=== PATIENT | male | born 1985 | race Two or more races ===

== ENCOUNTER 2025-05-25 08:52 | Emergency (ER) | payer MEDICAID, OTHER ==
[~2025-05-25] VITALS: Ht 172.7 cm; Wt 80.9 kg
--- NOTE | 2025-05-25 09:17 | ECG ---
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
--- NOTE | 2025-05-25 09:44 | ED.PDOC ---
History of Present Illness HPI Comments A 39 YEAR OLD MALE PRESENTS TO THE ED WITH SON AND THE COMPLAINT OF FLU-LIKE SYMPTOMS. PATIENT WHO IS TONG[place] SPEAKING IS BEING TRANSLATED BY THE SON DUE FROM THE PATIENT HAVING A HEADACHE, NAUSEA, SHORTNESS OF BREATH SENSATION, PALPITATIONS, DIZZINESS, ALL STARTING YESTERDAY ONTO TODAY. PATIENT DENIES FEV ER, CHILLS, CHEST PAIN, ABDOMINAL PAIN, VOMITING, HEADACHE, OR OTHER COMPLAINTS. NO OTHER SYMPTOMS OR MODIFYING FACTORS AT THIS TIME. PATIENT IS ALERT, ORIENTED X 4, AND HAS STEADY GAIT. Chief Complaint: Flu like Time Seen by MD: 09:30 Reviewed Notes: Nurses Notes, Medications, Allergies Allergies: Coded Allergies: NO KNOWN ALLERGIES (Unverified , 05/25/25) Home Meds Active Scripts Hydroxyzine Hcl (Hydroxyzine Hcl) 50 Mg Tab, 1 TAB PO QPM, #24 TAB Prov:REKHA BANGURA 05/25/25 Acetaminophen (Tylenol Extra Strength Fo) 500 Mg Tab, 1000 MG PO BID, #30 TAB Prov:REKHA BANGURA 05/25/25 Information Source: Patient Mode of Arrival: Ambulatory Severity: Moderate Timing: Hours Duration: Since onset, Hours Prehospital treatment: None Medication Refill: For: Other (POSSIBLE ANXIETY REACTION ) Past Medical History PAST MEDICAL HISTORY: HTN Surgical History: Denies all surgeries Family History Family History: Reviewed,noncontributory to illness, Unknown Social History Smoker: Non-Smoker Alcohol: Occasionally Drugs: Denies Drug Use Lives In: Home Constitutional: reports: others (ANXIOUS ); denies: chills, diaphoresis, fatigue, fever, malaise, sweats, weakness EENTM: denies: blurred vision, double vision, ear bleeding, ear discharge, ear drainage, ear pain, ear ringing, eye pain, eye redness, hearing loss, mouth pain, mouth swelling, nasal discharge, nose bleeding, nose congestion, nose pain, photophobia, tearing, throat pain, throat swelling, voice changes, others Respiratory: denies: cough, hemoptysis, orthopnea, SOB at rest, shortness of breath, SOB with excertion, stridor, wheezing, others Cardiovascular: reports: palpitations; denies: chest pain, dizzy spells, diaphoresis, Dyspnea on exertion, edema, irregular heart beat, left arm pain, lightheadedness, PND, syncope, others Gastrointestinal: reports: nausea; denies: abdomen distended, abdominal pain, blood streaked bowels, constipated, diarrhea, dysphagia, difficulty swallowing, hematemesis, melena, poor appetite, poor fluid intake, rectal bleeding, rectal pain, vomiting, others Genitourinary: denies: burning, dysuria, flank pain, frequency, hematuria, incontinence, penile discharge, penile sore, pain, testicle pain, testicle swelling, urgency, others Neurological: reports: dizziness, headache; denies: fainting, left sided numbness, left sided weakness, numbness, paresthesia, pre-existing deficit, right sided numbness, right sided weakness, seizure, speech problems, tingling, tremors, weakness, others Musculoskeletal: denies: back pain, gout, joint pain, joint swelling, muscle pain, muscle stiffness, neck pain, others Integumetry: denies: bruises, change in color, change in hair/nails, dryness, laceration, lesions, lumps, rash, wounds, others Allergic/Immunocompromised: denies: Difficulty Healing, Frequent Infections, Hives, Itching, others Hematologic/Lymphatic: denies: anemia, blood clots, easy bleeding, easy bruising, swollen glands, others Endocrine: denies: excessive hunger, excessive sweating, excessive thirst, excessive urination, flushing, intolerance to cold, intolerance to heat, unexplained weight gain, unexplained weight loss, others Psychiatric: reports: anxiety; denies: bipolar disorder, depression, hopeless, panic disorder, schizophrenia, sleepless, suicidal, others All Other Systems: Reviewed and Negative Physical Exam General Appearance: Mild Distress, Normal, Other (ANXIOUS ) HEENT: Normal ENT Inspection, PERRL/EOMI, Pharynx Normal, TMs Normal Neck: Full Range of Motion, Non-Tender, Normal, Normal Inspection Respiratory: Chest Non-Tender, Lungs Clear, No Accessory Muscle Use, No Respiratory Distress, Normal Breath Sounds Cardiovascular: No Edema, No JVD, No Murmur, No Gallop, Normal Peripheral Pulses, Regular Rate/Rhythm Breast Exam: Deferred Gastrointestinal: No Organomegaly, Non Tender, No Pulsatile Mass, Normal Bowel Sounds, Soft Genitalia: Deferred Pelvic: Deferred Rectal: Deferred Extremities: No calf tenderness, Normal capillary refill, Normal inspection, Normal range of motion, Non-tender, No pedal edema Musculoskeletal : Apperance: Normal Neurologic: Alert, 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 Was a procedure done?: No EKG EKG : Pulse Rate (adult): 78 [place]: Normal Cardiac Rhythm: NSR Block: None Hypertrophy: None ST: Normal Differential Dx Considerations may include: PALPITATIONS, ANXIETY, TENSION HEADACHE X-Ray, Labs, Meds, VS Vital Signs Date Time Temp Pulse Resp B/P (MAP) Pulse Ox O2 Delivery O2 Flow Rate FiO2 05/25/25 11:29 98.3 66 18 144/89 (107) 99 98.3 05/25/25 11:29 66 18 99 Room Air 05/25/25 09:44 78 05/25/25 09:11 78 05/25/25 08:56 98.1 82 14 124/77 98 98.1 Lab Test 05/25/25 09:49 05/25/25 09:38 Range/Units White Blood Count 9.4 4.4-10.8 10^3/uL Red Blood Count 5.62 4.5-5.90 10^6/uL Hemoglobin 17.7 H 13.5-17.5 g/dL Hematocrit 51.4 41.0-53.0 % Mean Corpuscular Volume 91.4 80.0-100.0 fL Mean Corpuscular Hemoglobin 31.4 28.0-32.0 pg Mean Corpuscular Hemoglobin Concent 34.4 32.0-36.0 g/dL Red Cell Distribution Width 13.0 11.8-14.3 % Platelet Count 217 140-450 10^3/uL Mean Platelet Volume 9.8 6.9-10.8 fL Neutrophils (%) (Auto) 63.5 37.0-80.0 % Lymphocytes (%) (Auto) 29.2 10.0-50.0 % Monocytes (%) (Auto) 5.1 0.0-12.0 % Eosinophils (%) (Auto) 1.5 0.0-7.0 % Basophils (%) (Auto) 0.7 0.0-2.0 % Neutrophils # (Auto) 6.0 1.6-8.6 10 ^3/uL Lymphocytes # (Auto) 2.8 0.4-5.4 10 ^3/uL Monocytes # (Auto) 0.5 0-1.3 10 ^3/uL Eosinophils # (Auto) 0.1 0-0.8 10 ^3/uL Basophils # (Auto) 0.1 0-0.2 10 ^3/uL Nucleated Red Blood Cells 0.0 % Sodium Level 142 136-145 mmol/L Potassium Level 4.0 3.5-5.1 mmol/L Chloride Level 102 98-107 mmol/L Carbon Dioxide Level 29 20-31 mmol/L Anion Gap 11 5-15 Blood Urea Nitrogen 11 9-23 mg/dL Creatinine 0.95 0.700-1.30 mg/dL Glomerular Filtration Rate Calc 104 >90 mL/min BUN/Creatinine Ratio 11.6 10.0-20.0 Serum Glucose 103 74-106 mg/dL Calcium Level 9.6 8.7-10.4 mg/dL Troponin I High Sensitivity < 3 L </=54 ng/L Plasma/Serum Blood Alcohol < 3.0 <10 mg/dL Urine Color Light-yellow Yellow Urine Clarity Clear Clear Urine pH 6.5 5.0-9.[address] 1.017 1.001-1.035 Urine Protein Negative Negative Urine Ketones Negative Negative Urine Blood Negative Negative /uL Urine Nitrite Negative Negative Urine Bilirubin Negative Negative Urine Urobilinogen Normal Negative mg/dL Urine Leukocyte Esterase Negative Negative /uL Urine RBC 1 0 - 3 /hpf Urine Microscopic WBC < 1 0-3 /HPF Urine Squamous Epithelial Cells None seen <5 /hpf Urine Bacteria None seen None Seen /hpf Urine Glucose Normal Normal mg/dL Urine Opiates Screen Neg NEGATIVE Urine Fentanyl Screen Neg NEGATIVE Urine Barbiturates Screen Neg NEGATIVE Urine Phencyclidine Screen Neg NEGATIVE Urine Amphetamines Screen Neg NEGATIVE Urine Benzodiazepines Screen Neg NEGATIVE Urine Cocaine Screen Neg NEGATIVE Urine Cannabinoids Screen Neg NEGATIVE Current Medications Medications (Trade) Dose Ordered Sig/Suleiman Route Start Time Stop Time Status Last Admin Acetaminophen (Tylenol Tablet Or Capsule) 1,000 mg ONCE ONCE PO 05/25/25 11:30 05/25/25 11:31 DC 05/25/25 11:35 PATIENT: BALAJI NORMANLEIFT: [id number]: [id number] : 1985 LOC: ER ROOM / BED: / AGE / SEX: 39 / M ADM STATUS: REG ER SERVICE ORDERING PHYSICIAN: REKHA BANGURA PROCEDURE(s): CXR1 - CHEST XRAY 1 VIEW REASON: PALPITATION ORDER NUMBER(s): [id number], ACCESSION NUMBER(s): [id number] EXAM: XY CHEST XRAY 1 VIEW Indication: PALPITATION Technique: Single frontal view of the chest was obtained Comparison: None FINDINGS: Lines and Tubes: None Lungs: No focal consolidation. Pleura: No effusion. No pneumothorax. Cardiomediastinal contours: Unremarkable Bones: No acute osseous abnormality. IMPRESSION: No acute cardiopulmonary disease. ATED BY: TANG SPEAR MD DICTATED DATE/TIME: 05/25/251016 SIGNED BY: TANG SPEAR MD SIGNED DATE/TIME: 05/25/251016 CC: X-Ray, Labs, Meds, VS Comment EXTERNAL MEDICAL RECORDS REVIEWED: [NONE] INDEPENDENT HISTORIANS: [NONE] SOCIAL DETERMINANTS OF HEALTH: [NONE] LABS ORDERED: CBC, BMP, TROP T, UA, DRUG AND ETOH REVIEWED AND INTERPRETED RESULTS: NORMAL IMAGING ORDERED: CHEST X-RAY: NORMAL TREATMENTS ORDERED: TYLENOL 1GM PO PROCEDURES PERFORMED: NONE CRITICAL CARE TIME: NONE I HAVE DISCUSSED THE PATIENT WITH THE ATTENDING PHYSICIAN DR. LAINEZ AND HE AGREES WITH THE PATIENT'S PLAN OF CARE AND DISPOSITION. BASED ON HISTORY OF PRESENT ILLNESS, AND PHYSICAL EXAM, PATIENT WILL BE DISCHARGED HOME. DISCUSSED PLAN FOR DISCHARGE HOME WITH RX [TYLENOL AND VISTARIL]. MEDICATION WARNINGS GIVEN. SHARED DECISION MAKING: DISCUSSED WITH PATIENT THAT THEIR WORKUP WAS NORMAL. PATIENT INSTRUCTED TO FOLLOW UP WITH PRIMARY CARE PROVIDER IN 1-2 DAYS FOR RE- EVALUATION OF SYMPTOMS. PATIENT VERBALIZES UNDERSTANDING TO RETURN TO ED FOR NEW OR WORSENING SYMPTOMS OR IF FOLLOW UP WITH PCP CANNOT BE OBTAINED. PATIENT FEELS COMFORTABLE GOING HOME AT THIS TIME. ALL QUESTIONS ADDRESSED AT TIME OF DISCHARGE. Time of 1ST Reevaluation: 11:40 Reevaluation 1ST: Improved Patient Education/Counseling: Diagnosis, Treatment, Need For Follow Up Family Education/Counseling: Diagnosis, Treatment, Need For Follow Up Medical Screening: No EMC Exist At This Time SEPSIS Sepsis Screen Date sepsis recognized/suspect: May 25, 2025 Time Sepsis recognized/suspect: 0858 Recent Procedure: No On Antibiotic Therapy: No Respiratory Rate >20: No Heart Rate >90: No Temp<36 C (96.8 F) or >38.3 C: No SBP <90 or MAP <65 mmHG: No New Acute Mental Status Change: No Is the patient on CPAP, BIPAP,: No Physician Orders Chest Xray 1 View (05/25/25 09:37) Vital Signs Date Time Temp Pulse Resp B/P (MAP) Pulse Ox O2 Delivery O2 Flow Rate FiO2 05/25/25 11:29 98.3 66 18 144/89 (107) 99 98.3 05/25/25 11:29 66 18 99 Room Air 05/25/25 09:44 78 05/25/25 09:11 78 05/25/25 08:56 98.1 82 14 124/77 98 98.1 Laboratory Tests Test 05/25/25 09:49 White Blood Count 9.4 10^3/uL (4.4-10.8) Medications Medications Dose Ordered Sig/Suleiman Route Start Time Stop Time Status Last Admin Dose Admin Acetaminophen 1,000 mg ONCE ONCE PO 05/25/25 11:30 05/25/25 11:31 DC 05/25/25 11:35 Departure 1 Departure Time of Disposition: 11:40 Impression: Primary Impression: Intermittent palpitations Additional Impression: Anxiety reaction Disposition: HOME / SELF CARE / HOMELESS Condition: Stable Additional Instructions: FOLLOW-UP WITH PCP IN 1 TO 2 DAYS. TAKE MEDICATIONS PRESCRIBED. RETURN TO ED FOR ANY NEW OR WORSENING SYMPTOMS. e-Prescriptions Hydroxyzine Hcl (Hydroxyzine Hcl) 50 Mg Tab 1 TAB PO QPM, #24 TAB Prov: REKHA BANGURA 05/25/25 Acetaminophen (Tylenol Extra Strength Fo) 500 Mg Tab 1000 MG PO BID, #30 TAB Prov: REKHA BANGURA 05/25/25 Discharged With: Self, Relative Critical Care Note Critical Care Time?: No Stability Stability form required: No I personally scribed for REKHA BANGURA ([email or web address]) on 05/25/25 at 09:44. Electronically submitted by Lio Mendes ([email or web address]). I personally scribed for REKHA BANGURA ([email or web address]) on 05/25/25 at 09:44. Electronically submitted by Lio Mendes ([email or web address]). I personally scribed for REKHA BANGURA ([email or web address]) on 05/25/25 at 09:44. Electronically submitted by Lio Mendes ([email or web address]). REKHA BANGURA May 25, 2025 09:44
[2025-05-25 10:07] LABS: Hematocrit 51.4 % (41.0-53.0); Hemoglobin 17.7 g/dL (13.5-17.5); Mean Corpuscular Hemoglobin 31.4 pg (28.0-32.0); Mean Corpuscular Volume 91.4 fL (80.0-100.0); Nucleated Red Blood Cells % 0.0 %
[2025-05-25 10:19] LABS: Chloride 102 mmol/L (98-107); Potassium 4.0 mmol/L (3.5-5.1); Sodium 142 mmol/L (136-145)
[2025-05-25 10:20] LABS: Anion Gap 11 (5-15); Carbon Dioxide 29 mmol/L (20-31)
--- NOTE | 2025-05-25 10:20 | DVH ---
EXAM: XY CHEST XRAY 1 VIEW Indication: PALPITATION Technique: Single frontal view of the chest was obtained Comparison: None FINDINGS: Lines and Tubes: None Lungs: No focal consolidation. Pleura: No effusion. No pneumothorax. Cardiomediastinal contours: Unremarkable Bones: No acute osseous abnormality. IMPRESSION: No acute cardiopulmonary disease.
[2025-05-25 10:21] LABS: Calcium 9.6 mg/dL (8.7-10.4)
[2025-05-25 10:27] LABS: BUN/Creatinine Ratio 11.6 (10.0-20.0); Blood Urea Nitrogen 11 mg/dL (9-23); Glucose 103 mg/dL (74-106)
[2025-05-25 11:00] LABS: Urine Protein, UAD Negative (Negative)
[2025-05-25 11:14] LABS: Amphetamine Screen, Urine Neg (NEGATIVE); Benzodiazephine Screen, Urine Neg (NEGATIVE)
[2025-05-25 11:15] LABS: Barbiturate Scree,Urine Neg (NEGATIVE); Cannabinoid Screen, Urine Neg (NEGATIVE); Cocaine Screen, Urine Neg (NEGATIVE); Opiate Scree,Urine Neg (NEGATIVE); Phencyclidine Screen, Urine Neg (NEGATIVE)
[2025-05-25 11:29] VITALS: BP 144/89; PULSE 66; RESP 18; TEMP 98.3; O2SAT 99
[2025-05-25] MEDS ORDERED: HYDR50TA69 PO (11:33)
[2025-05-25] MEDS ORDERED: ACET-1304 PO (11:33)
[2025-05-25] MEDS: ACETAMINOPHEN 500 MG TAB or CAP PO ONE (11:35)
== END 2025-05-25 11:40 | disposition home or self-care (01) ==
LOC: ER 08:52
DX: R00.2 Palpitations (principal); F41.1 Generalized anxiety disorder; I10 Essential (primary) hypertension; Z79.899 Other long term (current) drug therapy
CPT/HCPCS: 36415; 71045; 80048; 80307; 80320; 81001; 84484; 85025; 93005